=== PATIENT | female | born 1950 | race Caucasian/White ===

== ENCOUNTER 2025-02-15 19:02 | Emergency (ER) | payer MEDICARE ==
[~2025-02-15] VITALS: Ht 177.8 cm; Wt 80.8 kg
[2025-02-15 19:08] VITALS: BP 170/80; TEMP 97.5; O2SAT 97
[2025-02-15] MEDS ORDERED: FAMOTIDINE 20 MG TAB PO ONE (20:15)
[2025-02-15] MEDS ORDERED: CETIRIZINE 10 MG TAB PO ONE (20:15)
== END 2025-02-15 20:25 | disposition home or self-care (01) ==
LOC: M ED 19:02
DX: T63.441A Toxic effect of venom of bees, accidental (unintentional), initial encounter (principal); L53.9 Erythematous condition, unspecified